=== PATIENT | female | born 1995 | race Caucasian/White ===

== ENCOUNTER 2017-09-19 11:37 | Emergency (ER) | payer OTHER ==
[~2017-09-19] VITALS: Ht 157.5 cm; Wt 81.2 kg
[2017-09-19 11:59] VITALS: Ht 157.5 cm; Wt 81.2 kg
[2017-09-19 14:05] VITALS: BP 121/104
== END 2017-09-19 14:05 | disposition home or self-care (01) ==
LOC: ED 11:37
DX: K59.00 Constipation, unspecified (principal); R53.1 Weakness; Z88.2 Allergy status to sulfonamides
CPT/HCPCS: J1885

== ENCOUNTER 2018-02-05 07:54 | Emergency (ER) | payer OTHER ==
[~2018-02-05] VITALS: Ht 157.5 cm; Wt 72.6 kg
[2018-02-05 08:01] VITALS: Ht 157.5 cm; Wt 72.6 kg
[2018-02-05 09:58] LABS: BASOPHIL % 0.3 % (0-2); PLATELET COUNT 245 x10^3mcL (130-400); RED CELL DISTRIBUTION WIDTH 12.9 % (11.5-14.5)
[2018-02-05 10:17] LABS: CARBON DIOXIDE 26.1 mmol/L (21-32); CHLORIDE SERUM 109 mmol/L (98-107); CREATININE SERUM 0.6 mg/dL (0.6-1.0); GFR1 > 60 mL/min; GLUCOSE SERUM 101 mg/dL (74-106); POTASSIUM SERUM 3.8 mmol/L (3.5-5.1); SODIUM SERUM 143 mmol/L (136-145)
[2018-02-05 10:31] LABS: ALBUMIN 4.2 g/dL (3.4-5.0); ALKALINE PHOSPHATASE 98 U/L (46-116); ALT/SGPT 23 U/L (14-59); AST/SGOT 11 U/L (15-37); TOTAL PROTEIN, SERUM 7.5 g/dL (6.4-8.2)
[2018-02-05 12:11] VITALS: BP 125/78
== END 2018-02-05 12:11 | disposition home or self-care (01) ==
LOC: ED 07:54
PROVIDERS: Emergency Medicine
DX: R10.31 Right lower quadrant pain (principal); Z88.2 Allergy status to sulfonamides
CPT/HCPCS: 36415

== ENCOUNTER 2018-02-06 07:33 | Emergency (ER) | payer OTHER ==
[~2018-02-06] VITALS: Ht 157.5 cm; Wt 76.7 kg
[2018-02-06 07:42] VITALS: Ht 157.5 cm; Wt 76.7 kg
[2018-02-06 08:19] LABS: BASOPHIL % 0.8 % (0-2); PLATELET COUNT 248 x10^3mcL (130-400); RED CELL DISTRIBUTION WIDTH 12.7 % (11.5-14.5)
[2018-02-06 08:28] LABS: CALCIUM 8.6 mg/dL (8.5-10.1); CARBON DIOXIDE 26.1 mmol/L (21-32); CHLORIDE SERUM 109 mmol/L (98-107); CREATININE SERUM 0.6 mg/dL (0.6-1.0); GFR1 > 60 mL/min; GLUCOSE SERUM 99 mg/dL (74-106); POTASSIUM SERUM 3.9 mmol/L (3.5-5.1); SODIUM SERUM 145 mmol/L (136-145)
[2018-02-06 08:32] LABS: ALKALINE PHOSPHATASE 83 U/L (46-116); ALT/SGPT 15 U/L (14-59); AMYLASE 72 U/L (25-115); AST/SGOT 15 U/L (15-37); BILIRUBIN TOTAL 0.41 mg/dL (0.20-1.00); LIPASE 123 IU/L (73-393); TOTAL PROTEIN, SERUM 7.3 g/dL (6.4-8.2)
[2018-02-06 09:37] VITALS: BP 119/67
== END 2018-02-06 09:37 | disposition home or self-care (01) ==
LOC: ED 07:33
PROVIDERS: Specialist
DX: R10.31 Right lower quadrant pain (principal); Z88.2 Allergy status to sulfonamides
CPT/HCPCS: 36415

== ENCOUNTER 2018-11-21 12:34 | Emergency (ER) | payer OTHER ==
[~2018-11-21] VITALS: Ht 157.5 cm; Wt 81.2 kg
[2018-11-21 12:51] VITALS: Ht 157.5 cm; Wt 81.2 kg
[2018-11-21 14:44] LABS: CALCIUM 8.9 mg/dL (8.5-10.1); CARBON DIOXIDE 22.1 mmol/L (21-32); CHLORIDE SERUM 104 mmol/L (98-107); CREATININE SERUM 0.5 mg/dL (0.6-1.0); GFR1 > 60 mL/min; GLUCOSE SERUM 104 mg/dL (74-106); POTASSIUM SERUM 3.7 mmol/L (3.5-5.1); SODIUM SERUM 140 mmol/L (136-145)
[2018-11-21 14:45] LABS: BASOPHIL % 0.3 % (0-2); PLATELET COUNT 229 x10^3mcL (130-400); RED CELL DISTRIBUTION WIDTH 12.9 % (11.5-14.5)
[2018-11-21 14:48] LABS: ALKALINE PHOSPHATASE 82 U/L (46-116); ALT/SGPT 27 U/L (14-59); AST/SGOT 15 U/L (15-37); BILIRUBIN TOTAL 0.2 mg/dL (0.20-1.00); LIPASE 127 IU/L (73-393); TOTAL PROTEIN, SERUM 6.6 g/dL (6.4-8.2)
[2018-11-21 14:51] LABS: ALBUMIN 3.2 g/dL (3.4-5.0)
[2018-11-21 15:01] LABS: microscopic required? NO
[2018-11-21 15:15] LABS: UA SPECIFIC GRAVITY <=1.005 (1.005-1.035); urine erythrocyte NEGATIVE (NEGATIVE)
[2018-11-21 17:21] VITALS: BP 111/70
== END 2018-11-21 17:21 | disposition home or self-care (01) ==
LOC: ED 12:34
PROVIDERS: Emergency Medicine
DX: O26.892 Other specified pregnancy related conditions, second trimester (principal); O99.012 Anemia complicating pregnancy, second trimester; O25.12 Malnutrition in pregnancy, second trimester; R10.9 Unspecified abdominal pain; R51 Headache; Z3A.18 18 weeks gestation of pregnancy; Z88.2 Allergy status to sulfonamides; Z98.890 Other specified postprocedural states
CPT/HCPCS: J3411; J7030